=== PATIENT | female | born 1990 | race Caucasian/White ===

== ENCOUNTER 2018-04-20 22:20 | Emergency (ER) | payer MEDICAID ==
[~2018-04-20] VITALS: Ht 170.2 cm; Wt 120.2 kg
[2018-04-20 22:30] VITALS: BP_SYST 158
--- NOTE | 2018-04-20 22:53 | NUR ---
Patient to ER bed H1 to gown for evaluation. Side rails up. Report given to Bhavna RODRIGUEZ.
--- NOTE | 2018-04-20 22:55 | NUR ---
Patient complain of right facial cheek swelling x 4 days now worsening. Pain 4/10. No other complaints/injuries per patient or as noted. Will continue to monitor.
--- NOTE | 2018-04-20 23:00 | NUR ---
ER Dr. Lipscomb at bedside examining patient.
[2018-04-20 23:07] VITALS: BP_SYST 158
--- NOTE | 2018-04-20 23:07 | NUR ---
Patient given written and verbal discharge instructions and verbalizes understanding. ER MD discussed with patient the results and treatment provided. Patient in stable condition. ID arm band removed. Rx of Penicillin and Tylenol given. Patient educated on pain management and to follow up with PMD in 2-3 days. Pain Scale 0/10 Opportunity for questions provided and answered. Medication side effect fact sheet provided.
== END 2018-04-20 23:07 | disposition home or self-care (01) ==
LOC: SED 22:20
DX: K02.9 Dental caries, unspecified (principal); M79.9 Soft tissue disorder, unspecified
CPT/HCPCS: 99283